=== PATIENT | female | born 1985 | race African-American/Black ===

== ENCOUNTER 2018-03-22 02:39 | Emergency (ER) | payer MEDICAID ==
[~2018-03-22] VITALS: Ht 160 cm; Wt 82.0 kg
[2018-03-22 04:45] VITALS: BP 131/82
== END 2018-03-22 05:30 | disposition left against medical advice (07) ==
LOC: ER 02:39
DX: Z53.21 Procedure and treatment not carried out due to patient leaving prior to being seen by health care provider (principal)